=== PATIENT | male | born 1980 | race Caucasian/White ===

== ENCOUNTER 2019-11-30 12:35 | Observation (INO) ==
--- OUTSIDE RECORDS SUMMARY | 2019-11-30 12:38 | External Medical Summary | Continuity of Care Document ---
:1980 Author Name Torsten Day Address Unavailable Unavailable , Care Team Providers Name Role Phone Unavailable Unavailable Unavailable Yamileth Field PA-C Unavailable [email or web address] MARY ANN Day, Freda Unavailable Unavailable Unavailable Unavailable Unavailable Problems Acute pharyngitis (462) (J02.9) Viral gastroenteritis (008.8) (A08.4) Asthma (493.90) (J45.909) Acute sinusitis (461.9) (J01.90) Allergies and Adverse Reactions No Known Drug Allergies (Allergy) Medications Ventolin HFA 108 (90 Base) MCG/ACT Inhalation Aerosol Solution; 2 PUFFS QID PRN MELVINA Field Start: 20-Jul-2012 Quantity: 1 18 GM Inhaler Refills: 5 Advair Diskus 100-50 MCG/DOSE Inhalation Aerosol Powder Breath Activated; INHALE 1 PUFFS Twice daily MELVINA Field Start: 12-Apr-2012 Quantity: 1 60 EA Disp Pack Refills: 5 Procedures Procedures not documented Immunizations Immunizations not documented Social History - Smoking Status Never smoked tobacco Plan of Treatment Planned Observations Planned Goals not documented Results No Known Results Results not documented
[2019-11-30] MEDS ORDERED: XYLOCAINE 1%/SOD BICARB 20 ML VIAL INFIL ONE ×2 (12:50→13:03)
[2019-11-30] MEDS ORDERED: MoRPHine SULFATE 10 MG/ML CARP/VIAL IM STA (13:03)
[2019-11-30] MEDS ORDERED: DIPHTHERIA/TETANUS/PERTUSSIS 0.5 ML SYR/VIAL IM ONE (13:03)
[2019-11-30] MEDS ORDERED: ACETAMINOPHEN 1,000 MG/100 ML VIAL IV STA (13:19)
[2019-11-30] MEDS ORDERED: MoRPHine SULFATE 2 MG/ML CARP IV PRN (13:20)
[2019-11-30] MEDS: SODIUM CHLORIDE 0.9% 1000ML 1,000 ML IV SCH ×2 (13:42→20:33)
[2019-11-30 13:50] LABS: Basophils # (auto) 0.04 K/uL (0-0.2); Basophils % (auto) 0.4 %; Eosinophils # (auto) 0.08 K/uL (0-0.5); Eosinophils % (auto) 0.9 %; Hematocrit (blood only) 41.3 % (42-52); Hemoglobin 14.3 g/dL (14.0-18.0); Immature Granulocytes # (auto) 0.01 K/uL (0.00-0.02); Immature Granulocytes % (auto) 0.1 %; Lymphocytes # (auto) 1.35 K/uL (1.2-3.4); Lymphocytes % (auto) 15.1 %; Mean Corpuscular Hemoglobin 32.1 pg (25-34); Mean Corpuscular Hgb Conc 34.6 g/dL (32-36); Mean Corpuscular Volume 92.8 fL (80-100); Mean Platelet Volume 9.9 fL (7.4-10.4); Monocytes # (auto) 0.61 K/uL (0.11-0.59); Monocytes % (auto) 6.8 %; Neutrophils # (auto) 6.88 K/uL (1.4-6.5); Neutrophils % (auto) 76.7 %; Platelet Count 227 K/uL (130-400); RDW Coefficient of Variation 12.5 % (11.5-14.5); Red Blood Count 4.45 M/uL (4.7-6.1); White Blood Count 8.97 K/uL (4.8-10.8)
[2019-11-30 14:00] LABS: Prothrombin Time 10.4 Seconds (9.0-12.0)
[2019-11-30 14:06] LABS: BUN Creatinine Ratio 6.8 (10-20); Calcium 8.6 mg/dl (8.5-10.1); Creatinine Clr Calc Pharmacy 96.8 ml/min; Est GFR (Non-African American) 111.3; Potassium 3.8 mmol/L (3.5-5.1)
[2019-11-30 14:09] LABS: Bilirubin,Total 0.6 mg/dl (0.2-1); Globulin 4.2 gm/dl (2.5-4.0); Total Protein 8.2 gm/dl (6.4-8.2)
--- NOTE | 2019-11-30 14:46 | Emergency Department Note ---
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 He believes his tetanus is not up-to-date and this was updated. Denies any recent illness including denies fevers, chills, cough congestion, nausea, vomiting, diarrhea. On arrival the patient's wound with extends linearly from near AC to his wrist was inspected irrigated with sterile saline and does appear to have tendon function grossly intact though with some injury to muscle with potential tendon involvement. Distal neurovascular exam intact. Given the patient is right-hand dominant and relies on his hands for employment we did review the case with orthopedic surgery on-call Dr. Andino who did evaluate the patient at the bedside and recommends repair in the OR. The patient did not eat today but did report having a beer shortly prior to arrival. Therefore, plan will be to take the patient to the operating room after clinic today approximately 1600. WBC, hbg, and platelets wnl. Chemistry without acidosis. Covid19 negative. EKG un remarkable. Tetanus updated. Patient admitted to OR. Triage Nursing notes reviewed and agree them. Prior medical records reviewed Vital Signs: reviewed and remarkable for no significant abnormalities Differential diagnosis: Fracture, dislocation, contusion, intra-abdominal, pneumothorax, intrathoracic, intracranial, neurologic, compartment syndrome, rhabdomyolysis, as well as other pathologies. ER treatment provided: See below Diagnostics interpreted by me: ECG: NSR, 78 bpm, no ectopy, incomplete RBBB, no overt ST elevation or depression. Laboratory studies: See below Consultation(s): Orthopedic surgery on-call Dr. 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 He believes his tetanus is not up-to-date and this was updated. Denies any recent illness including denies fevers, chills, cough congestion, nausea, vomiting, diarrhea. ROS: See above HPI for pertinent positives & negatives. A total of 10 systems reviewed and were otherwise negative. PAST MEDICAL HISTORY:See Below PAST SURGICAL HISTORY:See Below FAMILY HISTORY:See Below SOCIAL HISTORY:See Below HOME MEDICATIONS:See Below ALLERGIES:See Below VITALS:See Below PHYSICAL EXAMINATION: GENERAL: Awake, alert, uncomfortable-appearing, in no distress HENT: Normocephalic, atraumatic. Oropharynx unremarkable. EYES: Normal conjunctiva. Sclera non-icteric. MUSCULOSKELETAL: Right forearm extends linearly from near AC to his wrist was inspected irrigated with sterile saline and does appear to have tendon function grossly intact though with some injury to muscle with potential tendon involvement. Distal neurovascular exam intact. LOWER EXTREMITIES: Calves are equal size bilaterally and non-tender. No edema. No discoloration. NEURO: Normal sensorium. No sensory or motor deficits noted. SKIN: No rash or jaundice noted. 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 [employer] Other Information That Helps Us Care for You: No Feels Safe at Home: Yes Safety Concerns: Feels Safe At This Time Smoking Status: Former smoker Tobacco Type: smokeless tobacco ; Hx Alcohol Use: Yes Alcohol type: beer Hx Substance Use: No Allergies Allergies Allergy/AdvReac Type Severity Reaction Status Date / Time No Known Allergies Allergy Unknown Unverified 08/01/18 10:43 Home Meds Home Medications Medication Instructions Recorded Confirmed No Known Home Medications 08/01/18 11/30/19 Results & Data (ED) Vital Signs Vital Signs - 24 hr 11/30/19 12:42 11/30/19 14:00 11/30/19 15:00 Temperature 36.8 C Temperature Source Oral Pulse Rate 100 H 86 Pulse Rate [Finger] 87 Pulse Rate from SpO2 Sensor 86 Pulse Strength [Finger] Respiratory Rate 22 20 17 Respiratory Effort / Characteristics Non-Labored Spontaneous Respiratory Depth Normal Respiratory Pattern Regular Blood Pressure 138/97 117/64 Blood Pressure [Right Arm] 126/82 Blood Pressure Mean 110 75 Blood Pressure Mean [Right Arm] 96 Blood Pressure Position [Right Arm] Pulse Oximetry 98 100 100 Oxygen Delivery Method Room Air Room Air Room Air Sepsis Recent Fever Within 48 Hours No Sepsis New/Unexplained Change in Mental Status No Sepsis Action Taken by Nursing No Action Required 11/30/19 15:03 11/30/19 15:11 11/30/19 15:20 Temperature Temperature Source Pulse Rate 77 86 Pulse Rate [Finger] 77 Pulse Rate from SpO2 Sensor 77 82 Pulse Strength [Finger] Respiratory Rate 14 13 20 Respiratory Effort / Characteristics Non-Labored Spontaneous Respiratory Depth Normal Respiratory Pattern Blood Pressure Blood Pressure [Right Arm] 117/64 Blood Pressure Mean Blood Pressure Mean [Right Arm] 81 Blood Pressure Position [Right Arm] Pulse Oximetry 99 99 99 Oxygen Delivery Method Room Air Room Air Room Air Sepsis Recent Fever Within 48 Hours Sepsis New/Unexplained Change in Mental Status Sepsis Action Taken by Nursing 11/30/19 15:30 11/30/19 15:31 11/30/19 15:40 Temperature Temperature Source Pulse Rate 79 85 88 Pulse Rate [Finger] Pulse Rate from SpO2 Sensor 80 82 88 Pulse Strength [Finger] Respiratory Rate 15 21 17 Respiratory Effort / Characteristics Respiratory Depth Respiratory Pattern Blood Pressure 122/70 Blood Pressure [Right Arm] Blood Pressure Mean 78 Blood Pressure Mean [Right Arm] Blood Pressure Position [Right Arm] Pulse Oximetry 99 99 98 Oxygen Delivery Method Room Air Room Air Room Air Sepsis Recent Fever Within 48 Hours Sepsis New/Unexplained Change in Mental Status Sepsis Action Taken by Nursing 11/30/19 15:50 11/30/19 16:00 11/30/19 16:01 Temperature Temperature Source Pulse Rate 98 H 80 80 Pulse Rate [Finger] Pulse Rate from SpO2 Sensor 97 H 80 83 Pulse Strength [Finger] Respiratory Rate 15 14 14 Respiratory Effort / Characteristics Respiratory Depth Respiratory Pattern Blood Pressure 106/64 Blood Pressure [Right Arm] Blood Pressure Mean 74 Blood Pressure Mean [Right Arm] Blood Pressure Position [Right Arm] Pulse Oximetry 98 99 99 Oxygen Delivery Method Room Air Room Air Room Air Sepsis Recent Fever Within 48 Hours Sepsis New/Unexplained Change in Mental Status Sepsis Action Taken by Nursing 11/30/19 16:13 11/30/19 16:28 Temperature 37.1 C Temperature Source Oral Pulse Rate Pulse Rate [Finger] 93 H Pulse Rate from SpO2 Sensor Pulse Strength [Finger] Normal Respiratory Rate 16 Respiratory Effort / Characteristics Non-Labored Spontaneous Respiratory Depth Normal Respiratory Pattern Blood Pressure Blood Pressure [Right Arm] 121/61 Blood Pressure Mean Blood Pressure Mean [Right Arm] 81 Blood Pressure Position [Right Arm] Sitting Pulse Oximetry 97 Oxygen Delivery Method Room Air Room Air Sepsis Recent Fever Within 48 Hours Sepsis New/Unexplained Change in Mental Status Sepsis Action Taken by Nursing Laboratory Data Attestation: I reviewed the patient's lab results. Result diagrams: 11/30/19 13:32 11/30/19 13:32 Lab Results 11/30/19 11/30/19 11/30/19 Range/Units 13:32 13:32 13:32 WBC 8.97 (4.8-10.8) K/uL RBC 4.45 L (4.7-6.1) M/uL Hgb 14.3 (14.0-18.0) g/dL Hct 41.3 L (42-52) % MCV 92.8 (80-100) fL MCH 32.1 (25-34) pg MCHC 34.6 (32-36) g/dL RDW Std Deviation 42.0 (36.4-46.3) fL RDW Coeff of Luke 12.5 (11.5-14.5) % Plt Count 227 (130-400) K/uL MPV 9.9 (7.4-10.4) fL Immature Gran % (Auto) 0.1 % Neut % (Auto) 76.7 % Lymph % (Auto) 15.1 % [place] % (Auto) 6.8 % Eos % (Auto) 0.9 % Baso % (Auto) 0.4 % Neut # (Auto) 6.88 H (1.4-6.5) K/uL Lymph # (Auto) 1.35 (1.2-3.4) K/uL [place] # (Auto) 0.61 H (0.11-0.59) K/uL Eos # (Auto) 0.08 (0-0.5) K/uL Baso # (Auto) 0.04 (0-0.2) K/uL Immature Gran # (Auto) 0.01 (0.00-0.02) K/uL PT 10.4 (9.0-12.0) Seconds INR 1.0 (0.9-1.1) Sodium (136-145) mmol/L Potassium (3.5-5.1) mmol/L Chloride (98-107) mmol/L Carbon Dioxide (21-32) mmol/L Anion Gap (3-11) BUN (7-18) mg/dl Creatinine (0.6-1.4) mg/dl Est Cr Clr Drug Dosing ml/min Est GFR ( Amer) Est GFR (Non-Af Amer) BUN/Creatinine Ratio (10-20) Glucose (70-99) mg/dl Calcium (8.5-10.1) mg/dl Total Bilirubin (0.2-1) mg/dl AST (15-37) U/L ALT (12-78) U/L Alkaline Phosphatase (45-117) U/L Total Protein (6.4-8.2) gm/dl Albumin (3.4-5.0) gm/dl Globulin (2.5-4.0) gm/dl Albumin/Globulin Ratio (0.9-2) COVID-19 PCR (Negative) Blood Type B Positive Antibody Screen NEGATIVE 11/30/19 11/30/19 Range/Units 13:32 14:54 WBC (4.8-10.8) K/uL RBC (4.7-6.1) M/uL Hgb (14.0-18.0) g/dL Hct (42-52) % MCV (80-100) fL MCH (25-34) pg MCHC (32-36) g/dL RDW Std Deviation (36.4-46.3) fL RDW Coeff of Luke (11.5-14.5) % Plt Count (130-400) K/uL MPV (7.4-10.4) fL Immature Gran % (Auto) % Neut % (Auto) % Lymph % (Auto) % [place] % (Auto) % Eos % (Auto) % Baso % (Auto) % Neut # (Auto) (1.4-6.5) K/uL Lymph # (Auto) (1.2-3.4) K/uL [place] # (Auto) (0.11-0.59) K/uL Eos # (Auto) (0-0.5) K/uL Baso # (Auto) (0-0.2) K/uL Immature Gran # (Auto) (0.00-0.02) K/uL PT (9.0-12.0) Seconds INR (0.9-1.1) Sodium 134 L (136-145) mmol/L Potassium 3.8 (3.5-5.1) mmol/L Chloride 103 (98-107) mmol/L Carbon Dioxide 23 (21-32) mmol/L Anion Gap 8.0 (3-11) BUN 6 L (7-18) mg/dl Creatinine 0.85 (0.6-1.4) mg/dl Est Cr Clr Drug Dosing 96.8 ml/min Est GFR ( Amer) 129.0 Est GFR (Non-Af Amer) 111.3 BUN/Creatinine Ratio 6.8 L (10-20) Glucose 70 (70-99) mg/dl Calcium 8.6 (8.5-10.1) mg/dl Total Bilirubin 0.6 (0.2-1) mg/dl AST 31 (15-37) U/L ALT 29 (12-78) U/L Alkaline Phosphatase 49 (45-117) U/L Total Protein 8.2 (6.4-8.2) gm/dl Albumin 4.0 (3.4-5.0) gm/dl Globulin 4.2 H (2.5-4.0) gm/dl Albumin/Globulin Ratio 1.0 (0.9-2) COVID-19 PCR NEGATIVE (Negative) Blood Type Antibody Screen Administered Medications Sodium Chloride (Nss 1000ml) 1,000 mls @ 125 mls/hr IV .Q8H URIEL Stop: 12/30/19 13:29 Last Admin: 11/30/19 20:33 Dose: 125 mls/hr Documented by: [id number] Infusion: 11/30/19 20:33 Dose: 125 mls/hr Documented by: [id number] Admin: 11/30/19 13:42 Dose: 125 mls/hr Documented by: [id number] Morphine Sulfate (Morphine Sulfate) 2 mg IV Q1H PRN PRN Reason: Moderate Pain (Rating 3,4,5,6) Stop: 12/14/19 13:19 Last Admin: 11/30/19 15:32 Dose: 4 mg Documented by: [id number] Morphine Sulfate (Morphine Sulfate) 4 mg IV Q1H PRN PRN Reason: Severe Pain (Rating 7,8,9,10) Stop: 12/14/19 13:19 Last Admin: 11/30/19 21:27 Dose: 4 mg Documented by: [id number] Discontinued Medications Bupivacaine HCl (Marcaine 0.5% Mpf) Confirm Administered Dose 30 ml .ROUTE .STK- MED ONE Stop: 11/30/19 17:43 Last Admin: 11/30/19 18:50 Dose: 30 ml Documented by: [id number] Diphtheria/Pertussis/Tetanus Vacc (Adacel) 0.5 ml IM .ONCE ONE Stop: 11/30/19 13:04 Last Admin: 11/30/19 13:18 Dose: 0.5 ml Documented by: [id number] Epinephrine HCl (Epinephrine) Confirm Administered Dose 1 mg .ROUTE .STK-MED ONE Stop: 11/30/19 17:42 Last Admin: 11/30/19 18:50 Dose: 1 mg Documented by: [id number] Acetaminophen (Ofirmev) 1,000 mg in 100 mls @ 400 mls/hr IV NOW STA Stop: 11/30/19 13:33 Last Infusion: 11/30/19 14:03 Dose: 0 mls/hr Documented by: [id number] Admin: 11/30/19 13:43 Dose: 400 mls/hr Documented by: [id number] Cefazolin Sodium (Ancef 1000mg) 1,000 mg in 7.5 mls @ 2.5 mls/min IV PREOP ONE Stop: 11/30/19 15:15 Last Admin: 11/30/19 17:45 Dose: 2.5 mls/min Documented by: [id number] Lidocaine HCl (Buffered Lidocaine 1%) Confirm Administered Dose 20 ml INFIL .STK-MED ONE Stop: 11/30/19 12:51 Last Admin: 11/30/19 13:21 Dose: 20 ml Documented by: [id number] Lidocaine HCl (Buffered Lidocaine 1%) 20 ml INFIL NOW ONE Stop: 11/30/19 13:04 Last Admin: 11/30/19 13:21 Dose: Not Given Documented by: [id number] Morphine Sulfate (Morphine Sulfate) 4 mg IM NOW STA Stop: 11/30/19 13:04 Last Admin: 11/30/19 13:15 Dose: 4 mg Documented by: [id number] Blood Pressure Blood Pressure Findings: Normal blood pressure Discharge Plan Visit Data *Final* Discharge Date/Time: 11/30/19 16:13 Chief Complaint: Wound ED Provider: Gt Chapman Discharge Problem: Laceration of forearm, right, complicated Patient Disposition: Admitted As Inpatient Discharge Instructions Interventions: ED Discharge Assessment Last Done: 11/30/19 16:13 Discharge Problem: Laceration of forearm, right, complicated Qualifiers: Encounter type: initial encounter Qualified Code(s): S51.811A - Laceration without foreign body of right forearm, initial encounter
--- NOTE | 2019-11-30 15:03 | History & Physical Report ---
Date of Service November 30, 2019 Assessment & Plan (1) Laceration of forearm, right, with tendon involvement: Patient is currently n.p.o. Betadine dressings are in place Patient will be taken to the operating room this afternoon for irrigation, debridement, and closure, by Dr. Andino. Tetanus is up-to-date as of today. Patient denies any COVID-19 symptoms and is aware of COVID-19 risks and precautions associated with surgical intervention. History of Present Illness Chief Complaint: Right forearm laceration Primary Care Provider: Ede Bernal MD This 39-year-old white male was seen today in the ED for evaluation of a large laceration on his right forearm. Patient was removing a broken toilet today and was carrying it with both arms. The porcelain broke apart and the exposed edges cut his right forearm. Bleeding was controlled with pressure. Wounds have been cleansed and dressed in the ED. [id number]. There is tendon exposure. He is aware of the necessity of exploration and closure in the OR. He denies any numbness or tingling. He does complain of pain in the forearm with attempts at extending his fingers, but denies loss of motion. No prior history of significant forearm injury. Allergies Allergy/AdvReac Type Severity Reaction Status Date / Time No Known Allergies Allergy Unknown Unverified 08/01/18 10:43 Home Medications Home Medications Medication Instructions Recorded Confirmed Type No Known Home Medications 08/01/18 11/30/19 History Past Med/Surg History Medical History No significant past medical history Family History Other No pertinent family history Social History Visual Impairment: No Limitations Hearing Ability: Normal marital status: Single marital status details: has fiance Current Living Situation: Significant Other current occupational status: employed 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 Physical Exam Physical Exam: General: Well-developed, well-nourished, young white male, in no acute distress. Obvious discomfort. Laying on a bed. Alert and oriented. Skin: Warm and dry with good turgor. No rashes or lesions. No ecchymosis or erythema. He has a 10 inch laceration present on the volar surface of his right forearm. Muscle belly is exposed. Fascia is also exposed. No visible foreign material within the wound. The patient is not diaphoretic. No abrasions. HEENT: Normocephalic atraumatic. Eyes PERRLA, EOMI. No conjunctiva or scleral injection. Ears TMs intact bilaterally with good light reflexes. No erythema or bulging. No hemotympanum. Canals are patent. Nares patent bilaterally without turbinate enlargement. No significant drainage. No epistaxis. Oropharynx without erythema or exudate. Uvula midline, oral mucosa moist. No lesions present. Fair dentition. Heart: Heart RRR. No MGR. Peripheral pulses are 2+. Lungs: Lungs are clear to auscultation. No crackles rhonchi or wheezing. Good air movement. The patient is able to take a deep breath. Abdomen: Abdomen was inspected, auscultated, and palpated. Bowel sounds present x 4. Soft, nontender to palpation. No hepato-splenomegaly. No masses noted. Musculoskeletal: Right hand has intact motor function of the thumb through little fingers. FDS and FDP function are intact for each of the digits by isolation. He has significant forearm discomfort with flexion and extension of the ring finger. Intact motor function of the wrist, though motion is again limited by pain. Neurologic: Gross sensation is intact across each of the digits of the right hand by soft touch. Peripheral pulses are 2+. Results & Data Results & Data ([facility]) Vital Signs (Past 12 Hours) Vital Signs Temp Pulse Resp BP Pulse Ox 11/30/19 12:42 36.8 C 100 H 22 138/97 98 Laboratory Results Rapid COVID test was obtained today. Supervising Physician Co-Signing Physician Notes I saw and examined the patient in the ER. Agree with above note. Informed consent obtained. Proceed to operating room this afternoon. Plan on keeping him overnight after surgery for antibiotics and pain control.
[2019-11-30] MEDS ORDERED: CEFAZOLIN 1000MG 1,000 MG/7.5 ML SYR IV ONE (15:13)
--- NOTE | 2019-11-30 16:22 | Electrocardiogram Report ---
Test Reason : Blood Pressure : / mmHG Vent. Rate : 078 BPM Atrial Rate : 078 BPM P-R Int : 138 ms QRS Dur : 078 ms QT Int : 398 ms P-R-T Axes : 078 075 071 degrees QTc Int : 453 ms Normal sinus rhythm Left atrial enlargement Incomplete right bundle branch block Borderline ECG When compared with ECG of 30-JUN-2003 20:39, Vent. rate has increased BY 29 BPM Incomplete right bundle branch block now present Confirmed by Manuelito Cummins ([id number]) on 11/30/2019 4:21:42 PM Referred By: REFERRED SELF Confirmed By:Manuelito Cummins
[2019-11-30] MEDS ORDERED: fentaNYL citrate 100 MCG/2 ML VIAL IV PRN (16:30)
[2019-11-30] MEDS ORDERED: ONDANSETRON INJ 2 MG/ML 2 ML VIAL IV PRN ×2 (16:30→19:14)
[2019-11-30] MEDS ORDERED: ATROPINE SULFATE 0.1 MG/ML 10ML SYR IV PRN (16:30)
[2019-11-30] MEDS ORDERED: ePHEDrine sulfate 50 MG/ML AMP IV PRN (16:30)
--- NOTE | 2019-11-30 16:30 | Anesthesiology Consultation ---
Date of Service November 30, 2019 Assessment & Plan (1) Asthma: (2) Encounter for pre-operative examination: COVID assessment: rapid test negative today Chart Review Chart Review: Acceptable Risk for Surgery Consults Requested none ASA ASA2 Proposed Anesthesia Anesthesia Type: General Risk / Benefits Reviewed With: PT / POA / Parent / Guardian, Accepts Plan and Informed Consent Obtained History Surgery Operation Date: 11/30/19 13:25 Proposed Procedures p Right Forearm Incision and Drainage and Repair - Gene Andino MD Height/Weight Height: 5 ft 10 in Weight: 57.5 kg Allergies Allergy/AdvReac Type Severity Reaction Status Date / Time No Known Allergies Allergy Unknown Unverified 08/01/18 10:43 Medications Home Medications Medication Instructions Recorded Confirmed Last Taken No Known Home Medications 08/01/18 11/30/19 Unknown Active Medications Generic Name Dose Route Start Last Admin Trade Name Freq PRN Reason Stop Dose Admin Sodium Chloride 1,000 mls @ 125 mls/hr 11/30/19 13:30 11/30/19 13:42 Nss 1000ml IV 12/30/19 13:29 125 mls/hr .Q8H URIEL Administration Morphine Sulfate 2 mg 11/30/19 13:20 11/30/19 15:32 Morphine Sulfate IV 12/14/19 13:19 4 mg Q1H PRN Administration Moderate Pain (Rating 3,4,5,6) NPO Date Last Intake of Fluids: 11/30/19 Time Last Intake of Fluids: 11:30 Last Intake of Fluids Comment: Beeer Date Last Intake of Solids: 11/29/19 Time Last Intake of Solids: 17:30 Past Medical History Medical History Asthma No significant past medical history Exercise / Class Metabolic Activity II 4-5 Yardwork/Stairs/Walk up hill Past Family History Family History Other No pertinent family history Past Anesthesia History No Hx of Anesthesia Complications and No Family Hx of Anesthesia Complications History of PONV No Hx of PONV and No Hx of Motion Sickness Social History Smoking Status: Former smoker tobacco type: smokeless tobacco Hx Alcohol Use: Yes Alcohol type: beer alcohol intake frequency: 3 or more drinks per day Hx Substance Use: No Physical Exam Vital Signs Last Vital Signs Temp 98.2 F 11/30/19 12:42 Pulse 80 11/30/19 16:01 Resp 14 11/30/19 16:01 BP 106/64 11/30/19 16:00 Pulse Ox 99 11/30/19 16:01 ENMT Mouth: no dentition abnormality Thyromental Distance: > or= 3.5 Finger Breadths Mallampati Class: II Neck normal visual inspection Respiratory normal respiratory effort Auscultation: lungs clear to auscultation bilaterally Cardiovascular Rate/Rhythm: regular rate and regular rhythm Testing Laboratory Results 11/30/19 13:32 11/30/19 13:32 PT 10.4 Seconds (9.0-12.0) 11/30/19 13:32 INR 1.0 (0.9-1.1) 11/30/19 13:32 Blood Type B Positive 11/30/19 13:32 Antibody Screen NEGATIVE 11/30/19 13:32 Electrocardiogram Date: 11/30/19 Findings: + NSR @ (78 bpm)
[2019-11-30] MEDS ORDERED: MIDAZOLAM HCL 1 MG/ML 2ML VIAL ONE (17:37)
[2019-11-30] MEDS ORDERED: PROPOFOL IV EMULSION 10 MG/ML 20 ML VIAL IV ONE (17:37)
[2019-11-30] MEDS ORDERED: LIDOCAINE HCL 2% 2 ML VIAL/AMP(20MG/ML) INFIL ONE (17:37)
[2019-11-30] MEDS ORDERED: EPINEPHrine INJ 1 MG/ML AMP ONE (17:41)
[2019-11-30] MEDS ORDERED: BUPIVACAINE 0.5 % 5 MG/1 ML MPF 30ML VIAL ONE (17:42)
[2019-11-30] MEDS ORDERED: fentaNYL citrate 100 MCG/2 ML VIAL ONE (17:56)
[2019-11-30] MEDS ORDERED: ACETAMINOPHEN 325 MG TAB PO PRN (19:14)
[2019-11-30] MEDS ORDERED: OXYCODONE/ACETAMINOPHEN 5mg/325mg TAB PO PRN (19:14)
[2019-11-30] MEDS ORDERED: METOCLOPRAMIDE HCL INJ 5 MG/ML 2 ML VIAL IV PRN (19:14)
[2019-11-30] MEDS ORDERED: ALUMINUM/MAGNESIUM SUSP 30 ML UDC PO PRN (19:14)
--- NOTE | 2019-11-30 19:14 | Operative Report ---
Post Operative Report Pre & Post Diagnosis Operation Date: 11/30/19 13:25 Pre-Op Diagnosis: Right forearm laceration, with tendon involvement Post-Op Diagnosis: Right forearm laceration, with tendon involvement I identified the patient and participated in the time-out.: Yes Procedure Operation Date: 11/30/19 13:25 Actual Procedures p Right Forearm Incision and Dedridement, Right Flexor Tendon Repair, Complex Wound Closure(Right) - Gene Andino MD Surgeon Gene Andino MD Ostomy Care Nurse Michael Meza PA-C Estimated Blood Loss 20 Findings Consistent with Post-Op Diagnosis Specimens none Complications none Disposition Accompanied Patient To Recovery: Yes Disposition: Recovery Room Description of Procedure I was present during the entire case assisting with positioning, wound closure, dressing and splint application. No fellow was available for this case. Please see Dr. Andino procedure note for specifics of the case. I attest to the content of the Intraoperative Record and any orders documented therein. Any exceptions are noted below.
--- NOTE | 2019-11-30 19:15 | Post Operative Brief Note ---
Immediate Post Op Note v1 Date of Surgery November 30, 2019 Pre & Post Diagnosis Operation Date: 11/30/19 13:25 Pre-Op Diagnosis: Right forearm laceration, with tendon involvement Post-Op Diagnosis: Right forearm laceration, with tendon involvement I identified the patient and participated in the time-out.: Yes Procedure Operation Date: 11/30/19 13:25 Actual Procedures p Right Forearm Incision and Dedridement, Right Flexor Tendon Repair, Complex Wound Closure(Right) - Gene Andino MD Surgeon Gene Andino MD Grades 1 Thru 6 Home Teacher Michael Meza PA-C Estimated Blood Loss 20 Findings Consistent with Post-Op Diagnosis Anesthesia Type General Complications none Disposition Accompanied Patient To Recovery: No Disposition: Recovery Room
--- NOTE | 2019-11-30 20:22 | Anesthesiology Progress Note ---
Date of Service November 30, 2019 Anesthesia Post Procedure Vital Signs Vital Signs: Temp Pulse Pulse Resp BP BP Pulse Ox 11/30/19 20:15 36.6 C 94 H 22 137/78 100 11/30/19 20:05 36.6 C 103 H 24 120/85 99 11/30/19 19:55 36.6 C 99 H 20 118/74 100 11/30/19 19:45 36.6 C 101 H 14 125/69 100 11/30/19 19:35 110 H 22 121/56 L 100 11/30/19 19:25 86 16 103/45 L 99 11/30/19 19:15 36.2 C L 91 H 17 116/40 L 99 11/30/19 16:28 37.1 C 93 H 16 121/61 97 11/30/19 16:01 80 14 99 11/30/19 16:00 80 14 106/64 99 11/30/19 15:50 98 H 15 98 11/30/19 15:40 88 17 98 11/30/19 15:31 85 21 99 11/30/19 15:30 79 15 122/70 99 11/30/19 15:20 86 20 99 11/30/19 15:11 77 13 99 11/30/19 15:03 77 14 117/64 99 11/30/19 15:00 86 17 117/64 100 11/30/19 14:00 87 20 126/82 100 11/30/19 12:42 36.8 C 100 H 22 138/97 98 Transfer of Care Handoff Completed per policy Notes Mental Status: alert / awake / arousable and participated in evaluation Patient Amnestic to Procedure: Yes Nausea / Vomiting: adequately controlled Pain: adequately controlled Airway Patency, RR, SpO2: stable & adequate BP & HR: stable & adequate Hydration State: stable & adequate Anesthetic Complications: no major complications apparent
[2019-11-30] MEDS: MoRPHine SULFATE 4 MG/ML 1 ML CARP\\VIAL IV PRN (21:27)
--- NOTE | 2019-11-30 21:46 | Operative Report (OR) ---
DATE OF OPERATION: 11/30/2019 PREOPERATIVE DIAGNOSIS: Left forearm deep laceration with a laceration of FDS tendon to the ring finger. POSTOPERATIVE DIAGNOSIS: Left forearm deep laceration with a laceration of FDS tendon to the ring finger. OPERATIONS PERFORMED: 1. Flexor tendon repair of the FDS tendon to the ring finger. 2. Irrigation and debridement and complex wound repair down to muscle and fascia. Wound length of 22 cm. SURGEON: Gene Andino MD. STRAIGHT TRUCK DRIVER: Darien Meza PA-C No fellow or resident was available to assist. ESTIMATED BLOOD LOSS: 20 mL. SPECIMENS: None. COMPLICATIONS: None. IMPLANTS: None. INDICATIONS: The patient is a 39-year-old male who sustained a laceration to his right forearm while carrying a broken porcelain toilet. He was brought to the Emergency Room where he was found to have an extensive laceration measuring 22 cm in length. The fascia was violated exposing the muscle belly. He was noted to be able to fire his FDS and FDP tendons to index through small fingers, although there was some tendon visible in the wound. Given the extensive nature of his laceration, I recommended a repair of any flexor tendon involvement as well as wound closure in the operating room. After reviewing all the risks and benefits of surgery, he elected to proceed. All questions were answered. Informed consent was signed. OPERATIVE FINDINGS: There was a partial laceration involving the FDS tendon to the ring finger with retraction of the muscle belly. This was repaired using running 3-0 Vicryl baseball stitch to the wrangell tendon, which was undamaged. The fascia was then closed followed by deep dermis and then the skin for a layered closure. DESCRIPTION OF THE OPERATION: The patient was identified in the preoperative holding area where his surgical site was marked. He was brought back to main operating room, where he was placed on the operating table and general anesthesia was administered. Perioperative antibiotics were administered. He was prepped and draped in the normal sterile fashion. Prior to incision, a multidisciplinary timeout was called. All in the room were in agreement. We began by irrigating out the wound with a sterile saline solution using a total of 1.5 liters. We then obtained our hemostasis with a bipolar electrocautery. Once the wound edges were dried, we then re-irrigated out the wound with another 500 mL of normal saline. The wound was then carefully inspected and there was a partial laceration of the FDS tendon with retraction of the torn portion of the tendon and muscle belly. Given the muscular retraction and the extent of the muscle belly involved, it was in the patient's best interest to repair this. The tendon end was brought back to its normal position from which it had retracted approximately 5 cm. This was then sewed in a [id number] fashion with a [id number], which was tied and then a baseball stitch was run down and backed up the lacerated portion of the tendon, which was approximately 8 cm in the total length of the longitudinal tear. Once this was complete, he had good hoahaoism of the normal resting tension on the tendon and muscle belly. Next, the wound was reirrigated out and the fascia was closed with a running 3-0 Vicryl. Another 3-0 Vicryl was used in the deep dermal layer in running fashion. A stapler was used to loren the skin edges. Distally he had a superficial laceration that was reapproximated with Steri-Strips. Sterile dressing was then applied followed by a plaster slab splint on the volar aspect of the wrist to hold the wrist in neutral. The patient was then awoken from anesthesia and transferred to recovery room in stable condition. POSTOPERATIVE COURSE: The patient will be admitted overnight for pain control and antibiotics. He will be in the wrist splint for 1 week. After that, we will remove his june and placement of Steri-Strips. He will not need any further splinting after 1 week. Gripping, grasping activities, however, will be restricted for 1 month. No DVT prophylaxis is indicated for this upper extremity surgery in a young patient. I attest to the content of the Intraoperative Record and any orders documented therein. Any exception s are noted below.
[2019-12-01] MEDS: SODIUM CHLORIDE 0.9% 1000ML 1,000 ML IV SCH (03:39)
[2019-12-01] MEDS: MoRPHine SULFATE 4 MG/ML 1 ML CARP\\VIAL IV PRN (03:41)
[2019-12-01] MEDS ORDERED: CEFAZOLIN 2000MG 2,000 MG/15 ML SYR IV SCH (06:00)
[2019-12-01] MEDS ORDERED: CEFAZOLIN 2000MG 2,000 MG/15 ML SYR IV ONE (08:00)
--- NOTE | 2019-12-01 10:02 | Orthopedic Progress Note ---
Date of Service December 01, 2019 Assessment & Plan (1) Laceration of forearm, right, with tendon involvement: Keep splint / dressing in place Discharge home today Infection Prophylaxis with Keflex PO Pain control with Oxycodone and Diclofenac Sodium Ice 4-5 x daily for 20-25 mins Elevated and rest Right arm No lifting with Right UE Move digits as much as possible Follow up at [facility] in 1 week Call on Tuesday to set up your appointment with Michael Meza PA-C next Tuesday. Admission and Anticipated Discharge Date Admission Date: November 30, 2019 Subjective This 39 yo M is day 1 post op complex right forearm laceration repair with tendon involvement. Patient states that his pain is fairly well controlled but has pain with movement of his ring finger. Patient denies CP, SOB, nausea, vomiting, fever, chills, sweats or lethargy. He is planning on discharge today. Review of Systems Review of Systems: All systems reviewed & are unremarkable except as noted in Subjective Physical Exam Physical Exam: Right Upper Extremity: Splint and dressing are clean, dry and intact. Patient has appropriate dexterity of digits with pain elicited with passive and active flexion at DIP and PIP joints. NV intact. Able to depict light sensation to touch over pads of digits. FROM at elbow. Cap refill < 2 seconds. Results & Data ([facility]) Vital Signs (Past 12 Hours) Vital Signs Temp Pulse Resp BP BP Pulse Ox 12/01/19 07:42 36.5 C 65 18 131/84 100 12/01/19 03:46 36.7 C 87 16 120/77 99 11/30/19 23:30 36.7 C 91 H 18 119/74 98 11/30/19 22:23 95 H 16 127/65 96 Laboratory Results 11/30/19 11/30/19 11/30/19 Range/Units 14:54 13:32 13:32 WBC (4.8-10.8) K/uL RBC (4.7-6.1) M/uL Hgb (14.0-18.0) g/dL Hct (42-52) % MCV (80-100) fL MCH (25-34) pg MCHC (32-36) g/dL RDW Std Deviation (36.4-46.3) fL RDW Coeff of Luke (11.5-14.5) % Plt Count (130-400) K/uL MPV (7.4-10.4) fL Immature Gran % (Auto) % Neut % (Auto) % Lymph % (Auto) % [place] % (Auto) % Eos % (Auto) % Baso % (Auto) % Neut # (Auto) (1.4-6.5) K/uL Lymph # (Auto) (1.2-3.4) K/uL [place] # (Auto) (0.11-0.59) K/uL Eos # (Auto) (0-0.5) K/uL Baso # (Auto) (0-0.2) K/uL Immature Gran # (Auto) (0.00-0.02) K/uL PT 10.4 (9.0-12.0) Seconds INR 1.0 (0.9-1.1) Sodium 134 L (136-145) mmol/L Potassium 3.8 (3.5-5.1) mmol/L Chloride 103 (98-107) mmol/L Carbon Dioxide 23 (21-32) mmol/L Anion Gap 8.0 (3-11) BUN 6 L (7-18) mg/dl Creatinine 0.85 (0.6-1.4) mg/dl Est Cr Clr Drug Dosing 96.8 ml/min Est GFR ( Amer) 129.0 Est GFR (Non-Af Amer) 111.3 BUN/Creatinine Ratio 6.8 L (10-20) Glucose 70 (70-99) mg/dl Calcium 8.6 (8.5-10.1) mg/dl Total Bilirubin 0.6 (0.2-1) mg/dl AST 31 (15-37) U/L ALT 29 (12-78) U/L Alkaline Phosphatase 49 (45-117) U/L Total Protein 8.2 (6.4-8.2) gm/dl Albumin 4.0 (3.4-5.0) gm/dl Globulin 4.2 H (2.5-4.0) gm/dl Albumin/Globulin Ratio 1.0 (0.9-2) COVID-19 PCR NEGATIVE (Negative) Blood Type Antibody Screen 11/30/19 11/30/19 Range/Units 13:32 13:32 WBC 8.97 (4.8-10.8) K/uL RBC 4.45 L (4.7-6.1) M/uL Hgb 14.3 (14.0-18.0) g/dL Hct 41.3 L (42-52) % MCV 92.8 (80-100) fL MCH 32.1 (25-34) pg MCHC 34.6 (32-36) g/dL RDW Std Deviation 42.0 (36.4-46.3) fL RDW Coeff of Luke 12.5 (11.5-14.5) % Plt Count 227 (130-400) K/uL MPV 9.9 (7.4-10.4) fL Immature Gran % (Auto) 0.1 % Neut % (Auto) 76.7 % Lymph % (Auto) 15.1 % [place] % (Auto) 6.8 % Eos % (Auto) 0.9 % Baso % (Auto) 0.4 % Neut # (Auto) 6.88 H (1.4-6.5) K/uL Lymph # (Auto) 1.35 (1.2-3.4) K/uL [place] # (Auto) 0.61 H (0.11-0.59) K/uL Eos # (Auto) 0.08 (0-0.5) K/uL Baso # (Auto) 0.04 (0-0.2) K/uL Immature Gran # (Auto) 0.01 (0.00-0.02) K/uL PT (9.0-12.0) Seconds INR (0.9-1.1) Sodium (136-145) mmol/L Potassium (3.5-5.1) mmol/L Chloride (98-107) mmol/L Carbon Dioxide (21-32) mmol/L Anion Gap (3-11) BUN (7-18) mg/dl Creatinine (0.6-1.4) mg/dl Est Cr Clr Drug Dosing ml/min Est GFR ( Amer) Est GFR (Non-Af Amer) BUN/Creatinine Ratio (10-20) Glucose (70-99) mg/dl Calcium (8.5-10.1) mg/dl Total Bilirubin (0.2-1) mg/dl AST (15-37) U/L ALT (12-78) U/L Alkaline Phosphatase (45-117) U/L Total Protein (6.4-8.2) gm/dl Albumin (3.4-5.0) gm/dl Globulin (2.5-4.0) gm/dl Albumin/Globulin Ratio (0.9-2) COVID-19 PCR (Negative) Blood Type B Positive Antibody Screen NEGATIVE
--- NOTE | 2019-12-01 10:02 | Discharge Summary ---
Date of Service December 01, 2019 Admission HPI Per Admitting Provider This 39-year-old white male was seen today in the ED for evaluation of a large laceration on his right forearm. Patient was removing a broken toilet today and was carrying it with both arms. The porcelain broke apart and the exposed edges cut his right forearm. Bleeding was controlled with pressure. Wounds have been cleansed and dressed in the ED. [id number]. There is tendon exposure. He is aware of the necessity of exploration and closure in the OR. He denies any numbness or tingling. He does complain of pain in the forearm with attempts at extending his fingers, but denies loss of motion. No prior history of significant forearm injury. Admission Exam Per Admitting Provider General: Well-developed, well-nourished, young white male, in no acute distress. Obvious discomfort. Laying on a bed. Alert and oriented. Skin: Warm and dry with good turgor. No rashes or lesions. No ecchymosis or erythema. He has a 10 inch laceration present on the volar surface of his right forearm. Muscle belly is exposed. Fascia is also exposed. No visible foreign material within the wound. The patient is not diaphoretic. No abrasions. HEENT: Normocephalic atraumatic. Eyes PERRLA, EOMI. No conjunctiva or scleral injection. Ears TMs intact bilaterally with good light reflexes. No erythema or bulging. No hemotympanum. Canals are patent. Nares patent bilaterally without turbinate enlargement. No significant drainage. No epistaxis. Oropharynx without erythema or exudate. Uvula midline, oral mucosa moist. No l esions present. Fair dentition. Heart: Heart RRR. No MGR. Peripheral pulses are 2+. Lungs: Lungs are clear to auscultation. No crackles rhonchi or wheezing. Good air movement. The patient is able to take a deep breath. Abdomen: Abdomen was inspected, auscultated, and palpated. Bowel sounds present x 4. Soft, nontender to palpation. No hepato-splenomegaly. No masses noted. Musculoskeletal: Right hand has intact motor function of the thumb through little fingers. FDS and FDP function are intact for each of the digits by isolation. He has significant forearm discomfort with flexion and extension of the ring finger. Intact motor function of the wrist, though motion is again limited by pain. Neurologic: Gross sensation is intact across each of the digits of the right hand by soft touch. Peripheral pulses are 2+. Principal Diagnosis Complex Right Forearm Laceration Discharge Exam Right Upper Extremity: Splint and dressing are clean, dry and intact. Patient has appropriate dexterity of digits with pain elicited with passive and active flexion at DIP and PIP joints. NV intact. Able to depict light sensation to touch over pads of digits. FROM at elbow. Cap refill < 2 seconds. Discharge Data Allergies Allergy/AdvReac Type Severity Reaction Status Date / Time No Known Allergies Allergy Unknown Unverified 08/01/18 10:43 Consultations 11/30/19 13:18 ED Decision to Admit Stat Procedures Performed Operation Date: 11/30/19 13:25 Actual Procedures p Right Forearm Incision and Dedridement, Right Flexor Tendon Repair, Complex Wound Closure(Right) - Gene Andino MD Hospital Course (1) Laceration of forearm, right, with tendon involvement: Patient did fairly well overnight. Pain is controlled with PO med. Patient will be discharged this AM on PO ABX, pain meds and will keep dressing/splint in place until his follow up at our clinic next Tuesday. Keep splint / dressing in place Discharge home today Infection Prophylaxis with Keflex PO Pain control with Oxycodone and Diclofenac Sodium Ice 4-5 x daily for 20-25 mins Elevated and rest Right arm No lifting with Right UE Move digits as much as possible Follow up at [facility] in 1 week Call on Tuesday to set up your appointment with Michael Meza PA-C next Tuesday. Total Time Total Time Spent Total Time Spent (In Minutes): 15 mins Total Time Includes: Examination of the Patient, Discharge Planning and Medication Reconciliation Discharge Plan Discharge Items Patient Disposition: Home - Self-Care Reason For Visit: RIGHT FOREARM LACERATION Discharge Diagnosis: Complex laceration to Right forearm Activity: As commented below Lifting: Wait until after follow-up appointment Bathing: Keep incision dry Bathing Comment: May shower tomorrow Sexual Activity: Wait until after follow-up appointment Exercise/Sports: Wait until after follow-up appointment Non-emergency contact: Primary Care Provider Call non-emergency contact if: you have any medication questions, your pain is not controlled, your temperature is above 101.5, your wound has increased drainage and your wound pain has increased Follow-up/Referrals: Arun Bernal MD [Primary Care Provider] - Diet: Regular Addtl Attending Provider Instructions: Post-operative Instructions Dear Patient and Family/Friends, Before you are discharged from the hospital, it is important to know what to expect when you get home after surgery. To that end, we have created this sheet of discharge instructions which covers many commonly asked questions. Make sure you go through this sheet in its entirety with your nurse before you are discharged. Please note that we will go over the specifics of your surgery and recovery when you return for your first post-operative visit. Sincerely, Dr. Andino Medications 1. Oxycodone 5mg: take 1 tab every 6 hrs as needed for pain. 20 tabs will be sent to your pharmacy. 2. Keflex 500mg: take 1 tab 4 times daily for next 3 days for infection prevention. Sent to pharmacy. 3. Diclofenac Sodium 75 mg: Take 1 tab twice daily for next 30 days. This will be sent to your pharmacy. Pain Expect to be in a fair amount of pain after surgery. Remember, our goal is not to eliminate your pain, but to make it tolerable. It is a good idea to stay ahead of your pain by taking the medications you were prescribed once you get home. Typically, the pain starts improving 3-7 days after surgery. You should start weaning off the narcotic pain medication (oxycodone, hydrocodone, hydromorphone, morphine) as soon as your pain improves. Please call our office if your pain is not adequately controlled. Ice Ice your operative site at least 5 times a day for 15-30 minutes at a time. Make sure you have a thin cloth between the ice or cooling unit and your skin to prevent brown bite. This is especially important if you received a nerve block. Continue icing your operative site for the first 5-7 days after surgery, then as needed. Diet/Nausea/Vomiting Start by drinking clear liquids and eating crackers. If you can tolerate this, then you may resume your normal diet. If you feel nauseated or vomit, take Zofran/ondansetron (if prescribed). Please call our office if you have intracta ble nausea or vomiting, or, if after hours, you may go to the Emergency Room for help. Constipation Constipation is a common side effect of narcotic pain medication. If you have not had a bowel movement within 2 days after surgery, we recommend purchasing an over the counter laxative such as Milk of Magnesia, Dulcolax, or Miralax from a local pharmacy, and taking it as instructed. Call our clinic if any questions. Slings and Braces If you were placed in a sling or brace, it must be worn at all times, including sleep. You may remove your sling or brace for physical therapy, home exercises, and showering. The length of time you will be in your brace and range of motion restrictions depends on what surgery you had; these details will be reviewed at your first post-operative appointment. Weight bearing and Range of Motion. Do not bear any weight through your operative extremity immediately after surgery. If you had upper extremity surgery, do not lift anything with that arm. If you are in a knee brace, keep it locked in place until your follow-up. We will discuss your weight bearing, range of motion, and lifting restrictions in detail at your first post-operative appointment. Continuous Passive Motion (CPM) Machine If you were prescribed a CPM machine, it will start after your first post-operative appointment, at which time we will give you instructions on the range of motion settings and duration of treatment Physical therapy You will be given a prescription for physical therapy or occupational therapy at your first post-operative appointment. Typically, patients start therapy within 1 week of surgery Wound care and showering We will inspect your wound at your first post-operative visit, and may do a dressing change at that time. Most patients will be in a water-proof dressing that is removed 14 days after surgery. It is normal to see some dried blood on the dressing. Do not remove your dressing, paper strips or sutures yourself unless you are given permission. Showering is allowed the day after surgery. Do not scrub or remove any dressings. The wound should not be submerged underwater (i.e. in a bathtub or pool) until 4 weeks after surgery TORREY stockings If you were given white stockings, these are to be worn at all times except to shower (on both legs) for the first 2 weeks after surgery. Driving You may not drive while taking narcotic pain medication or while in a cast, splint, sling or brace. You, the patient, need to make the final determination about when you are safe to drive, however, the earliest you may consider driving after surgery is below: Hand/Wrist/Elbow Surgery: 3 days Shoulder Surgery: 2 weeks Hip,/Knee/Ankle Surgery: 4 weeks Fracture repair: 6 weeks Return to Work Your return to work depends on what surgery was done and what type of work you do. Please bring any paperwork your employer needs completed to your first post-operative visit. Also, bring a description of your job duties, as this helps us to understand what risks you may face at work. Travel Avoid long distance travel (greater than 1 hour) in airplanes and cars for the first 6 weeks after surgery. If you must travel, you need to have a Doppler ultrasound done before you travel to rule out a blood clot in your legs. Follow-up You should have a follow-up appointment already scheduled 1-2 days after surgery. If not, please contact our office to make this appointment before you leave the hospital. When to call the office It is normal to have swelling and bruising in the limb that was operated on. This will improve with time. It is also normal to have fevers for the first 2 days after surgery. Reasons you should call your doctor include: Uncontrolled pain; Nausea, vomiting, or constipation that does not improve with medication; Fevers over 101.5, chills, sweats; Drainage or bleeding from the wound; Foul odor; Spreading areas of redness; Any other concerns Pending Studies at Discharge: No Stand-Alone Forms: My [facility] Medications and DC Order Prescriptions: New oxycodone 5 mg tablet 5 mg PO Q6H Qty: 20 RF: 0 cephalexin [Keflex] 500 mg capsule 500 mg PO QID 3 Days Qty: 12 RF: 0 diclofenac sodium 75 mg tablet,delayed release (DR/EC) 75 mg PO BID Qty: 60 RF: 0 No Action No Known Home Medications RF: 0 Discharge Orders: Discharge Order (Routine); Ordered 12/01/19 Ordered By: Manjinder Meza Admission Data Admit Date/Time: 11/30/19 19:15 Attending Provider: Gene Andino Admit Provider: Gene Andino Primary Care Provider: Arun Bernal Other Providers: Gene Andino
== END 2019-12-01 10:47 | disposition home or self-care (01) ==
LOC: ED 12:35 → OR 16:13 → 3E 16:13